=== PATIENT | female | born 1995 | race Caucasian/White ===

== ENCOUNTER 2022-09-04 10:32 | Outpatient (CLI) | payer OTHER, SELFPAY ==
[2022-09-04 22:39] LABS: Cholesterol* 171 mg/dL (90-199); Glucose* 78 mg/dL (60-115); Triglycerides* 121 mg/dL (40-149)
[2022-09-04 22:40] LABS: HDL Cholesterol* 49 mg/dL (>=50); LDL Cholesterol Calculated 98 mg/dL (<100)
== END 2022-09-04 10:33 | disposition home or self-care (01) ==
LOC: FRMREF 10:33
PROVIDERS: Visit Provider Registered Nurse
DX: Z01.419 Encounter for gynecological examination (general) (routine) without abnormal findings (principal); Z13.6 Encounter for screening for cardiovascular disorders; Z13.1 Encounter for screening for diabetes mellitus; Z83.3 Family history of diabetes mellitus
CPT/HCPCS: 80061; 82947

== ENCOUNTER 2022-10-21 10:52 | Outpatient (CLI) | payer OTHER, SELFPAY ==
--- NOTE | 2022-10-21 11:15 | CRLHL7_ITS ---
For Patients: As a result of the Cures Act, medical imaging exams and procedure reports are released immediately into your electronic medical record. You may view this report before your referring provider. If you have questions, please contact your health care provider. RIGHT BREAST ULTRASOUND CLINICAL HISTORY: Follow-up RIGHT breast fibroadenomas. COMPARISON: [facility] ultrasound 04/24/2022. TECHNIQUE: Real-time ultrasound imaging of RIGHT breast with imaging documentation. FINDINGS: Targeted sonogram RIGHT breast 4 o`clock 3 cm from the nipple performed. At this location there is a hypoechoic nodular structure just beneath the skin with increased through transmission measuring 7 x 6 x 7 millimeters, unchanged in size and morphology compared to the prior exam. Similarly, there is a stable hypoechoic structure just beneath the skin at 10 o`clock 4 cm from the nipple measuring 5 x 3 x 4 millimeters. IMPRESSION: Stable morphology and size of the hypoechoic structures just beneath the skin at 4 o`clock 3 cm from the nipple measuring 7 millimeters and 10 o`clock 4 cm from the nipple measuring 5 millimeters. Differential diagnosis includes benign fibroadenomas or sebaceous cysts with internal debris. No evidence of malignancy. RECOMMENDATIONS: Clinical follow-up. Age appropriate screening mammography. Results and recommendations were discussed with the patient at the time of the exam. BI-RADS Category 2: Benign A lay language report of this examination will be provided to the patient. Dictated by Rolo Kinsey MD @ 10/21/2022 11:44:41 AM/margareth DEE DEE/Dictated by: Rolo Kinsey MD @ 10/21/2022 11:44:00 AM DEE DEE/Dictated by: Rolo Kinsey MD @ 10/21/2022 11:44:00 AM (Electronically Signed)
== END 2022-10-21 10:53 | disposition home or self-care (01) ==
PROVIDERS: Visit Provider Registered Nurse
DX: D24.1 Benign neoplasm of right breast (principal)
CPT/HCPCS: 76642

== ENCOUNTER 2023-09-10 09:03 | Outpatient (CLI) | payer OTHER, SELFPAY ==
[2023-09-10 15:16] LABS: Chlamydia DNA Amplified* NOT DETECTED (No Detected); GC DNA Amplified* NOT DETECTED (No Detected)
== END 2023-09-10 09:04 | disposition home or self-care (01) ==
LOC: FRMREF 09:04
PROVIDERS: Visit Provider Registered Nurse
DX: Z11.3 Encounter for screening for infections with a predominantly sexual mode of transmission (principal)
CPT/HCPCS: 87491; 87591

== ENCOUNTER 2024-06-26 09:25 | Outpatient (CLI) | payer OTHER, SELFPAY ==
--- OUTSIDE RECORDS SUMMARY | 2024-06-26 09:30 | XMS_ITS | Patient Health Record ---
Author Organization [facility] Address [address] [place] [address] Care Team Providers Care Ski Patrol Name Role Phone Dontae Paulino Primary Care Provider [phone] Allergies Allergen (clinical drug ingredient) Drug/Non Drug Allergy documented on EMR Reaction Allergy Type Onset Date Status codeine codeine Unsure Drug Allergy Active penicillin rash Drug Allergy Active Reason For Referral No Information Medications Medication SIG (Take, Route, Fr equency, Duration) Notes Start Date End Date Status Multi-Vitamin Gummies Take 2 gummies Ora lly Once a Day Active Kyleena 19.5 MG Intrauterine 04/23/2018 Active Immunizations Vaccine Route Administration Date Status Comme nts DTaP vaccine, less than 7yrs, IM (Infanrix) Unknown 1994 Administered DTaP vaccine, less than 7yrs, IM (Infanrix) Unknown 02/12/1995 Administered DTaP vaccine, less than 7yrs, IM (Infanrix) Unknown 04/20/1995 Administered DTaP vaccine, less than 7yrs, IM (Infanrix) Unknown 01/15/1996 Administered DTaP vaccine, less than 7yrs, IM (Infanrix) Unknown 10/22/1999 Administered FLU quad, 6 mo+, MDV (Flulaval) IM Intramuscular 08/10/2013 Administered FLU quad, 6 mo+, MDV (Flulaval) IM Intramuscular 08/10/2014 Administered Per [facility] standing orders. FLU Vaccine, 6 to 35 months of age, 0.25ml, MDV, IM Quad (AFLURIA) IM Intramuscular 09/21/2015 Administered FLU Vaccine, 6 to 35 months of age, 0.25ml, MDV, IM Quad (AFLURIA) IM Intramuscular 08/22/2016 Administered Per [place] standing orders FLU Vaccine, 6+ months, 0.5 ml IM, prefilled, quad (Fluarix) IM Intramuscular 09/02/2017 Administered Per [place] standing orders FLU Vaccine, 6+ months, 0.5 ml IM, prefilled, quad (Fluarix) IM Intramuscular 09/10/2018 Administered Per [facility] Standing Orders FLU Vaccine, 6+ months, 0.5 ml IM, prefilled, quad (Flulaval) IM Intramuscular 07/12/2020 Administered FLU Vaccine, 6+ months, 0.5 mL, MDV, IM, quad (Flulaval) IM Intramuscular 07/06/2019 Administered Flu vaccine, trivalent, 4+ years, IM (Fluvirin) Unknown 08/16/2012 Administered see scanned document for details Flu vaccine, trivalent, prefilled, 3+ years, IM Unknown 09/04/2006 Administered Flu vaccine, trivalent, prefilled, 3+ years, IM Unknown 08/30/2007 Administered Flu vaccine, trivalent, prefilled, 3+ years, IM Unknown 09/04/2008 Administered Flu vaccine, trivalent, prefilled, 3+ years, IM Unknown 08/03/2009 Administered Flu vaccine, trivalent, prefilled, 3+ years, IM Unknown 08/03/2010 Administered Flu vaccine, trivalent, prefilled, 3+ years, IM Unknown 09/05/2011 Administered Hep A-Peds, 1-18yrs IM(Havrix) Unknown 01/08/2007 Administered Hep A-Peds, 1-18yrs IM(Havrix) Unknown 08/30/2007 Administered HepB - Peds, -19yrs IM (Engerix) Unknown 1994 Administered HepB - Peds, -19yrs IM (Engerix) Unknown 1994 Administered HepB - Peds, -19yrs IM (Engerix) Unknown 08/20/1995 Administered Historic - Hib {PRP-OMP}(Pedvaxhib/C omvax) Unknown 1994 Administered Historic - Hib {PRP-OMP}(Pedvaxhib/C omvax) Unknown 02/12/1995 Administered Historic - Hib {PRP-OMP}(Pedvaxhib/C omvax) Unknown 04/20/1995 Administered Historic - Hib {PRP-OMP}(Pedvaxhib/C omvax) Unknown 01/15/1996 Administered Historic - Human papillomavirus (HPV) (Gardasil) Unknown 01/08/2007 Administered Historic - Human papillomavirus (HPV) (Gardasil) Unknown 03/10/2007 Administered Historic - Human papillomavirus (HPV) (Gardasil) Unknown 06/11/2007 Administered MMR vaccine, 1+yrs, subcutaneous Unknown 10/21/1995 Administered MMR vaccine, 1+yrs, subcutaneous Unknown 10/22/1999 Administered Polio (IPOL, IPV) Unknown 1994 Administered Polio (IPOL, IPV) Unknown 02/12/1995 Administered Polio (IPOL, IPV) Unknown 04/20/1995 Administered Polio (IPOL, IPV) Unknown 10/22/1999 Administered Tdap (Boostrix), 10+yrs Unknown 01/08/2007 Administered Tdap (Boostrix), 10+yrs IM Intramuscular 04/23/2017 Administered Varicella (Varivax), 12mos+ Unknown 11/01/1997 Administered Had Chicken pox as child Problems Problem Type SNOMED Code ICD Code Onset Dates Problem Status W/U Status Risk Notes Problem 67606955 Postcoital bleeding (N93.0) Active confirmed Problem 629434078 IUD (intrauterin e device) in place (Z97.5) Active confirmed Problem 99313236817578 Abnormal uterine bleeding (N93.9) Active confirmed Problem 942778017 Cervical high risk HPV (human papillomavirus) test positive (R87.810) Active confirmed Problem 907408973 Flu vaccine need (Z23) Active confirmed Problem 344470115 Abnormal vaginal bleeding (N93.9) Active confirmed Problem 674795441 Postcoital and contact bleeding (N93.0) Active confirmed Problem Human papilloma virus deoxyribonucleic acid test positive, high risk on vaginal specimen (815486482438393) Cervical high risk human papillomavirus (HPV) DNA test positive (R87.810) Active confirmed Problem 54602575 Moderate single current episode of major depressive disorder (F32.1) Active confirmed Problem 701154711 LGSIL on Pap smear of cervix (R87.612) Active confirmed Plan Of Treatment Future Test Test Name Order Date Ultrasound : Breast Unilateral Right 11/2023 Ultrasound : Breast Unilateral Right 12/2023 Insurance Providers Payer Name Payer Address Payer Phone Subscriber Number Group Number Insured Name Patient Relationship to Insured Coverage Start Date [facility]age End Date [facility] [address] [place] [address] [id number] Timothy Vazquez Spouse - patient is the spouse of the insured 2 Medical (General) History Medical History History ICD Code hx of anemia Kyleena IUD 04/23/18- Mary IUD 05/16/15-04/23/18 fibroadenoma(s) right breast 2021 Surgical History Surgery Date(Month/Year) right forearm fractrue and surgery right hip fracture 05/06 Hardware removed from (R) hip 03/2013
[2024-06-28 04:42] LABS: Follicle Stimulating Hormone 10.8 IU/L
[2024-06-28 06:56] LABS: Estradiol Premenol Female 42 pg/mL
== END 2024-06-26 09:26 | disposition home or self-care (01) ==
PROVIDERS: Visit Provider Registered Nurse
DX: N97.9 Female infertility, unspecified (principal)
CPT/HCPCS: 36415; 82670; 83001; 84443

== ENCOUNTER 2024-07-04 08:38 | Outpatient (CLI) | payer OTHER, SELFPAY ==
--- NOTE | 2024-07-04 09:15 | CRLHL7_ITS ---
For Patients: As a result of the Century Cures Act, medical imaging exams and procedure reports are released immediately into your electronic medical record. You may view this report before your referring provider. If you have questions, please contact your health care provider. Indication: Infertility Technique: Routine hysterosalpingogram. Fluoroscopic time 1 minute 9 seconds. IMPRESSION: Normal patency of the fallopian tubes bilaterally. No filling defect within the endometrial canal. Normal exam. Dictated by Rolo Kinsey MD @ 07/04/2024 10:26:49 AM (Electronically Signed)
--- NOTE | 2024-07-04 10:07 | W.PM.GYNPROC ---
Procedure Note Time Seen by Provider: 09:50 Date of procedure: 07/04/24 Will [facility] bill your pro fee for this procedure?: Yes Pre-op diagnosis: Infertility. Post-op diagnosis: Infertility. Procedure: Hysterosalpingogram. Anesthesia: none Complications: None. Surgeon: Luisa Mueller MD Pathology: none sent Condition: stable Findings: Patent fallopian tubes bilaterally. Procedure Description: After obtaining verbal consent, the patient was placed in the dorsal lithotomy position on the x-ray table. An open-sided bivalve speculum was introduced into the vagina and the cervix easily visualized. The cervix and vagina were then prepped with Betadine. A balloon tipped double-lumen catheter was then gently inserted through the cervical opening into the uterine cavity to the level of the fundus. The balloon was insufflated with 3 mL of air. The speculum was removed. The patient was repositioned in the supine position, covered, and the radiologist was called to the room. A hysterosalpingogram was then performed. A total of 13 cc of Optiray 300 water soluble contrast dye was injected through the double-lumen catheter under moderate pressure. There was immediate fill of the uterine cavity to the cornua immediate fill of the normal right fallopian tube with spillage into the right pelvis. Additional pressure was placed on the dye catheter, and the left tube did not fill. The balloon was deflated. Additional pressure was placed on the dye catheter and at this point the left fallopian tube did fill, was noted to be normal caliber, and there was spillage of dye into the left pelvis. The catheter was removed. The patient tolerated the procedure well, though she did have moderate cramping discomfort during and just after the procedure. She was discharged to home in stable condition and to [facility].
== END 2024-07-04 08:39 | disposition home or self-care (01) ==
LOC: RAD 08:39
PROVIDERS: Visit Provider Obstetrics & Gynecology
DX: N97.9 Female infertility, unspecified (principal); Z31.9 Encounter for procreative management, unspecified
CPT/HCPCS: 58340; 74740; 84144; A4649; Q9967

== ENCOUNTER 2024-07-14 07:45 | Outpatient (CLI) | payer OTHER, SELFPAY ==
--- OUTSIDE RECORDS SUMMARY | 2024-07-19 12:36 | XMS_ITS | Patient Health Record ---
Author Organization [facility] Address [address] [place] [address] Care Team Providers Care Bid Analyst Name Role Phone Dontae Paulino Primary Care Provider Allergies Allergen (clinical drug ingredient) Drug/Non Drug [...] MDV (Flulaval) IM Intramuscular 08/10/2014 Administered Per [facility] standing orders. FLU Vaccine, 6 to 35 months of age, 0.25ml, MDV, IM Quad (AFLURIA) IM Intramuscular 09/21/2015 Administered FLU Vaccine, 6 to 35 months of age, 0.25ml, MDV, IM Quad (AFLURIA) IM Intramuscular 08/22/2016 Administered Per [place] standing orders FLU Vaccine, 6+ months, 0.5 ml IM, prefilled, quad (Fluarix) IM Intramuscular 09/02/2017 Administered Per [place] standing orders FLU Vaccine, 6+ months, 0.5 ml IM, prefilled, quad (Fluarix) IM Intramuscular 09/10/2018 Administered Per [facility] Standing Orders FLU Vaccine, 6+ months, 0.5 [...] Problem Status W/U Status Risk Notes Problem 15902471 Postcoital bleeding (N93.0) Active confirmed Problem 991123849 IUD (intrauterin e device) in place (Z97.5) Active confirmed Problem 10185049102652 Abnormal uterine bleeding (N93.9) Active confirmed Problem 024995053 Cervical high risk HPV (human papillomavirus) test positive (R87.810) Active confirmed Problem 562356736 Flu vaccine need (Z23) Active confirmed Problem 500446566 Abnormal vaginal bleeding (N93.9) Active confirmed Problem 378772826 Postcoital and contact bleeding (N93.0) Active confirmed Problem Human papilloma virus deoxyribonucleic acid test positive, high risk on vaginal specimen (099122285960105) Cervical high risk human papillomavirus (HPV) DNA test positive (R87.810) Active confirmed Problem 03258576 Moderate single current episode of major depressive disorder (F32.1) Active confirmed Problem 106227013 LGSIL on Pap smear of cervix (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.612) Active confirmed Plan Of Treatment Future Test Test Name Order Date Ultrasound : Breast Unilateral Right 11/2023 Ultrasound : Breast Unilateral Right 12/2023 Insurance Providers Payer Name Payer Address Payer Phone Subscriber Number Group Number Insured Name Patient Relationship to Insured Coverage Start Date Coverage End Date [facility] [address] [place] [address] [id number] Timothy Vazquez Spouse - patient is the spouse of the insured 2 Medical (General) History Medical History History ICD Code hx of anemia Kyleena IUD 04/23/18- Mary IUD 05/16/15-04/23/18 fibroadenoma(s) right breast 2021 Surgical History Surgery Date(Month/Year) right forearm fractrue and surgery right hip fracture 05/06 Hardware removed from (R) hip 03/2013
== END 2024-07-14 07:46 | disposition home or self-care (01) ==
LOC: NFLDREF 07-19 12:35
PROVIDERS: Visit Provider Registered Nurse
DX: N97.0 Female infertility associated with anovulation (principal)
CPT/HCPCS: 84144

== ENCOUNTER 2025-06-21 14:35 | Outpatient (CLI) | payer OTHER, SELFPAY | END 2025-06-21 14:36 | disposition home or self-care (01) | LOC: NFLDREF 06-23 17:58 | PROVIDERS: Visit Provider Nurse Practitioner Family | DX: E78.2 Mixed hyperlipidemia (principal) | CPT/HCPCS: 80053; 80061 ==

== ENCOUNTER 2025-08-07 16:22 | Outpatient (CLI) | payer OTHER, SELFPAY | END 2025-08-07 16:23 | disposition home or self-care (01) | LOC: NFLDREF 08-20 12:40 | PROVIDERS: PCP Nurse Practitioner Family; Referring Provider Nurse Practitioner Family; Visit Provider Registered Nurse | DX: N97.9 Female infertility, unspecified (principal) | CPT/HCPCS: 83520; 84144 ==

== ENCOUNTER 2025-09-14 09:00 | Outpatient (CLI) | payer OTHER, SELFPAY ==
--- NOTE | 2025-09-14 09:15 | CRLHL7_ITS ---
For Patients: As a result of the Cures Act, medical imaging exams and procedure reports are released immediately into your electronic medical record. You may view this report before your referring provider. If you have questions, please contact your health care provider. OB ULTRASOUND INDICATION: Dating and viability. TECHNIQUE: Real time grayscale imaging of the fetus was performed. Transvaginal. Transvaginal imaging performed to better demonstrate the endometrium and ovaries. LMP: 07/18/2025. CLAIRE by LMP: 04/24/2026. GA: 8 w, 2 d. Previous US: No. CRL: 2.2 cm. 8 w 6 d. CLAIRE: 04/20/2026. FHR: 180 BPM. Gestational sac: 3.8 cm. Appears within normal limits. Yolk sac: 3.1 mm. Appears within normal limits. Right ovary: 4.4 x 1.8 x 2.4 cm. Left ovary: 11.1 x 5.7 x 7.5 cm. IMPRESSION: 1. Single living intrauterine measures 8 weeks 6 days with sonographic due date 04/20/2026. 2. heart rate 180 beats per minute. 3. Subchorionic hemorrhage measures 7 x 4 x 6 mm. 4. Simple left ovary cysts measure 3.8 x 5.1 x 5.8 cm and 5.2 x 5.0 x 6.5 cm. Rolo Kinsey M.D. Diagnostic Radiologist [email or web address] JOSEPH/brian torres/Dictated by: Rolo Kinsey MD @ 09/14/2025 10:52:00 AM (Electronically Signed)
== END 2025-09-14 09:01 | disposition home or self-care (01) ==
LOC: US 09:01
PROVIDERS: PCP Nurse Practitioner Family; Visit Provider Physician Assistant
DX: O20.9 Hemorrhage in early pregnancy, unspecified (principal); O34.81 Maternal care for other abnormalities of pelvic organs, first trimester; N83.292 Other ovarian cyst, left side; Z3A.08 8 weeks gestation of pregnancy
CPT/HCPCS: 76817

== ENCOUNTER 2025-09-14 10:22 | Outpatient (CLI) | payer OTHER, SELFPAY ==
[2025-09-14 19:07] LABS: Chlamydia DNA Amplified* NOT DETECTED (No Detected); GC DNA Amplified* NOT DETECTED (No Detected)
[2025-09-16 16:39] LABS: HPV Source Cervix
[2025-09-19 11:19] LABS: Pap Test Digital Imaging Done
== END 2025-09-14 10:23 | disposition home or self-care (01) ==
PROVIDERS: PCP Nurse Practitioner Family; Visit Provider Physician Assistant
DX: Z34.91 Encounter for supervision of normal pregnancy, unspecified, first trimester (principal); Z3A.01 Less than 8 weeks gestation of pregnancy
CPT/HCPCS: 83020; 83021; 85660; 86592; 86703; 86704; 86706; 86762; 86787; 86803; 86850; 86900; 86901; 87086; 87340; 87491; 87591; 87624; 87625; 88141; 88142; 88175